=== PATIENT | female | born 1980 | race Caucasian/White ===

== ENCOUNTER → 2016-09-30 | Outpatient (CLI) | payer OTHER ==
[~2016-09-30] MED LIST: CELEBREX50 MG PO; FISH OIL500 MG PO; FLEXERIL 1010 MG/TAB PO; LOESTRIN 1/20 21DAY PO; MOTRIN PM 38 MG1 TAB PO; MULTI VITAMINS1 TAB PO; TYLENOL PM EXTR1 TA1 PO; [UNRECOGNIZED DRUG - OTHER]
== END ==
LOC: COL.RAD 13:15
DX: M25.561 Pain in right knee (principal); M94.8X6 Other specified disorders of cartilage, lower leg

== ENCOUNTER → 2017-06-23 | Outpatient (CLI) | payer OTHER | LOC: COL.RAD 07:30 | DX: M79.672 Pain in left foot (principal); M79.671 Pain in right foot; R60.0 Localized edema ==

== ENCOUNTER → 2021-12-30 | Outpatient (CLI) | payer OTHER | LOC: MC.RAD 11-11 14:00 | DX: Z12.31 Encounter for screening mammogram for malignant neoplasm of breast (principal) ==